=== PATIENT | male | born 1975 | race Caucasian/White ===

== ENCOUNTER 2021-11-15 11:40 | Emergency (ER) | payer BC ==
[~2021-11-15] VITALS: Ht 167.6 cm; Wt 125.0 kg
[~2021-11-15 11:40] MED LIST: PREDNISONE20 MG PO
[2021-11-15 11:55] VITALS: BP 129/87; PULSE 77; TEMP 98.1
[2021-11-15] MEDS ORDERED: ZYRTEC 10MG10 MG PO (12:01)
== END 2021-11-15 13:15 | disposition home or self-care (01) ==
LOC: COL.ER 11:40
DX: S61.011A Laceration without foreign body of right thumb without damage to nail, initial encounter (principal); W26.0XXA Contact with knife, initial encounter

== ENCOUNTER → 2021-11-22 | Outpatient (CLI) | payer BC ==
[~2021-11-22] MED LIST changes: +ZYRTEC 10MG10 MG PO
[2021-11-22 09:38] VITALS: BP 128/86; PULSE 73; TEMP 98.3
== END ==
LOC: COL.ER 09:29
DX: Z48.02 Encounter for removal of sutures (principal)